=== PATIENT | male | born 1965 | race Caucasian/White ===

== ENCOUNTER 2022-05-27 09:14 | Emergency (ER) | payer MEDICARE ==
[~2022-05-27] VITALS: Ht 172.7 cm; Wt 106.6 kg
[~2022-05-27 09:14] MED LIST: CRUTCH3 USE; HYDACE5325 PO; NAPR500 PO; NAPR550 PO; RXHYD5325 PO; TRAM50 PO
== END 2022-05-27 12:14 | disposition home or self-care (01) ==
LOC: ER 09:14
DX: M25.561 Pain in right knee (principal); I10 Essential (primary) hypertension; F17.220 Nicotine dependence, chewing tobacco, uncomplicated; Z79.899 Other long term (current) drug therapy
CPT/HCPCS: 73562-RT; J1885